=== PATIENT | male | born 1990 | race Caucasian/White ===

== ENCOUNTER 2017-12-29 19:32 | Emergency (ER) | payer BC ==
[~2017-12-29] VITALS: Ht 172.7 cm; Wt 93.0 kg
[2017-12-29 19:39] VITALS: BP 133/71; PULSE 88; RESP 18; TEMP 98.4; O2SAT 98
[2017-12-29] MEDS ORDERED: BACT800T5 PO (21:22)
[2017-12-29] MEDS ORDERED: CLIN300C5 PO (21:27)
[2017-12-29] MEDS ORDERED: CLINDAMYCIN PHOS 600 MG/4 ML VIAL IM ONE (21:30)
--- NOTE | 2017-12-29 21:32 | PD ---
HPI Chief Complaint: Skin Problem Time Seen by Provider: 21:13 Travel History International Travel<30 days: No Contact w/Intl Traveler<30days: No Traveled to known affect area: No History of Present Illness HPI This patient complains of infected spider bite on his right forearm and a lesser one near his left wrist. Severity is moderate. He went to an urgent care center yesterday and they lanced the right forearm and prescribed him 10 days of Bactrim. He is not having fever. There is active drainage from the right forearm. He thinks this is a spider bite. He brought a spider with him in a jar. He wonders if it is a brown recluse. It is in the realm of possibility but I cannot say for certain. No alleviating factors. PFSH Past Medical History Medical History: Denies Significant Hx Diminished Hearing: No Tetanus Vaccination: Unknown Influenza Vaccination: No Social History Alcohol Use: Yes (daily) Tobacco Use: Yes Substance Use: No Allergies-Medications (Allergen,Severity, Reaction): Coded Allergies: No Known Allergies (Unverified , 12/29/17) Reported Meds & Prescriptions Reported Meds & Active Scripts Active Clindamycin (Clindamycin HCl) 300 Mg Cap 300 Mg PO TID Reported Bactrim DS (Sulfamethoxazole-Trimethoprim) 800-160 Mg Tab 1 Tab PO BID Review of Systems General / Constitutional: No: Fever Eyes: No: Visual changes HENT: No: Headaches Cardiovascular: No: Chest Pain or Discomfort Respiratory: No: Shortness of Breath Gastrointestinal: No: Abdominal Pain Genitourinary: No: Dysuria Musculoskeletal: Positive: Pain Skin: No Rash Neurologic: No: Weakness Psychiatric: No: Depression Endocrine: No: Polydipsia Hematologic/Lymphatic: No: Easy Bruising Physical Exam Narrative Psych: Normal mood and affect. Normal insight and judgment. NECK: Symmetrical appearance, midline trachea. No mass or crepitus. Thyroid without enlargement, tenderness, or mass. GASTROINTESTINAL: Abdomen soft, non-tender, nondistended. Positive bowel sounds. No hepato-splenomegaly, or palpable masses. No guarding. Right forearm: Patient has an area of erythema and induration with a central opening that is draining pus. I obtained a wound culture and Gram stain and sent it to the lab Left wrist: Patient has a 1 cm diameter soft spongy erythematous area without fluctuance or drainage Data Data Last Documented VS Vital Signs Date Time Temp Pulse Resp B/P (MAP) Pulse Ox O2 Delivery O2 Flow Rate FiO2 12/29/17 19:39 98.4 88 18 133/71 (91) 98 Orders Orders Clindamycin Inj (Cleocin Inj) (12/29/17 21:30) Wound Culture And Gram Stain (12/29/17 21:24) MDM Medical Decision Making Medical Screen Exam Complete: Yes Emergency Medical Condition: Yes Medical Record Reviewed: Yes Differential Diagnosis Spider bite, cellulitis, abscess Narrative Course I have reviewed the patient's electronic medical record. Patient is 2 areas of infection. The left wrist is not amenable to incision and drainage. The right side is been incised yesterday and is actively draining. Wound culture and Gram stain sent I gave him injection of clindamycin and added a week of clindamycin to his 10 days of Bactrim Follow with primary care or return if he has worsening Diagnosis Primary Impression: Cutaneous abscess of right upper extremity Additional Instructions: Use warm compresses Take antibiotics The patient was advised to follow up with their physician and return if they worsen. Med/Other Pt SpecificInfo: Prescription(s) given Scripts Clindamycin (Clindamycin) 300 Mg Cap 300 MG PO TID for Infection, #21 CAP 0 Refills Prov: Tahir Good MD 12/29/17 Disposition: 01 DISCHARGE HOME Condition: Stable Tahir Good MD December 29, 2017 21:32
== END 2017-12-29 22:28 | disposition home or self-care (01) ==
LOC: NEPD 19:32
DX: L02.413 Cutaneous abscess of right upper limb (principal); Z72.0 Tobacco use
CPT/HCPCS: 86403; 87070; 87186; 87205; 96372